=== PATIENT | male | born 1945 | race Caucasian/White ===

== ENCOUNTER → 2021-12-15 | Outpatient (CLI) | payer OTHER ==
--- NOTE | 2021-12-15 16:15 | US ---
EXAMINATION TYPE: US carotid duplex BILAT DATE OF EXAM: 12/15/2021 COMPARISON: NONE CLINICAL HISTORY: I73.89 OTHER SPECIFIED PERIPHERAL VASCULAR DISEASE. Hx hypertension, hyperlipidemia , current smoker. Hx left endarterectomy per last scan. EXAM MEASUREMENTS: RIGHT: Peak Systolic Velocity (PSV) cm/sec ----- Right CCA: 63.1 ----- Right ICA: 139.4 ----- Right ECA: 123.7 ICA/CCA ratio: 2.2 RIGHT: End Diastole cm/sec ----- Right CCA: 15.4 ----- Right ICA: 36.0 ----- Right ECA: 13.7 LEFT: Peak Systolic Velocity (PSV) cm/sec ----- Left CCA: 73.8 ----- Left ICA: 109.5 ----- Left ECA: 111.7 ICA/CCA ratio: 1.5 LEFT: End Diastole cm/sec ----- Left CCA: 19.7 ----- Left ICA: 35.8 ----- Left ECA: 13.8 VERTEBRALS (direction of flow): Right Vertebral: Antegrade Left Vertebral: Antegrade Rhythm: Normal Plaque seen within right bulb, prox right ICA, prox right ECA, and prox left ICA. Elevated velocity w ithin right ICA.ICA/CCA ratio was 2.2 on the right and 1.5 on the left. IMPRESSION: 1. 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 2. Atheromatous plaquing is present on the left with mild narrowing of less than 50%. Criteria for Assigning % of Stenosis / Diameter reduction (Estimation based on the indirect measurements of the internal carotid artery velocities (ICA PSV). 1. Normal (no stenosis)=ICA PSV < 125 cm/s: ratio < 2.0: ICA EDV<40 cm/s. 2. Less than 50% stenosis=ICA PSV < 125 cm/s: ratio < 2.0: ICA EDV<40 cm/s. 3. 50 to 69% stenosis=ICA PSV of 125 to 230 cm/s: ration 2.0 ? 4.0: ICA EDV 40-100 cm/s. 4. Greater than 70% stenosis to near occlusion= ICA PSV > 230 cm/s: ratio > 4.0: ICA EDV > 100 cm/s. 5. Near occlusion= ICA PSV velocities may be low or undetectable: variable ratio and ICA EDV. 6. Total occlusion=unable to detect flow.
== END | disposition home or self-care (01) ==
LOC: RADUSWWP 14:00
PROVIDERS: ATTEND Physician Assistant
DX: I65.23 Occlusion and stenosis of bilateral carotid arteries (principal)
CPT/HCPCS: 93880